=== PATIENT | male | born 2005 | race Caucasian/White ===

== ENCOUNTER 2023-12-13 21:37 | Emergency (ER) | payer OTHER ==
[~2023-12-13] VITALS: Ht 154.9 cm; Wt 59.0 kg
[2023-12-13 21:49] VITALS: BP 138/82; PULSE 132; RESP 24; TEMP 98; O2SAT 93
[2023-12-13] MEDS: ALBUTEROL 0.083% 2.5 MG/3 ML NEBU INH ONE (21:54)
[2023-12-13 22:04] VITALS: PULSE 135; RESP 26; O2SAT 99
[2023-12-13] MEDS: FAMOTIDINE 20 MG/2 ML VIAL IVP ONE (22:08)
[2023-12-13] MEDS: methylPREDNISolone SS 125 MG/2 ML VIAL IVP ONE (22:08)
[2023-12-13] MEDS: diphenhydrAMINE 50 MG/ML VIAL IVP ONE (22:09)
[2023-12-13 22:52] VITALS: O2SAT 94
[2023-12-13] MEDS ORDERED: PRED20TA5 PO (23:47)
[2023-12-13] MEDS ORDERED: BEN50 PO (23:47)
== END 2023-12-13 23:52 | disposition home or self-care (01) ==
LOC: MED 21:37
DX: T78.2XXA Anaphylactic shock, unspecified, initial encounter (principal); J45.901 Unspecified asthma with (acute) exacerbation; Z79.899 Other long term (current) drug therapy; Z88.0 Allergy status to penicillin
CPT/HCPCS: 71046; 94640; 96374; 96375; 99291; J1200; J2919; J3490; J7613